=== PATIENT | male | born 1940 | race Caucasian/White ===

== ENCOUNTER → 2016-09-20 | Outpatient (CLI) | payer OTHER ==
[~2016-09-20] MED LIST: ATORVASTATIN CA80 MG PO; CARVEDILOL12.5 MG PO; DIGITEK250 MC1 PO; FINASTERIDE5 MG PO; FUROSEMIDE 80 M80 M1 PO; KLOR-CON 1010 MEQ PO; NORCO 5-325 TA1 EACH PO; PRADAXA150 MG PO; ZETIA10 MG PO
== END ==
LOC: HYPER 07:06
DX: I89.0 Lymphedema, not elsewhere classified (principal); I48.2 Chronic atrial fibrillation; I25.10 Atherosclerotic heart disease of native coronary artery without angina pectoris; N18.3 Chronic kidney disease, stage 3 (moderate); I87.2 Venous insufficiency (chronic) (peripheral); Z87.01 Personal history of pneumonia (recurrent); Z86.73 Personal history of transient ischemic attack (TIA), and cerebral infarction without residual deficits; Z95.0 Presence of cardiac pacemaker; Z95.1 Presence of aortocoronary bypass graft